=== PATIENT | female | born 2000 | race Caucasian/White ===

== ENCOUNTER 2018-03-28 19:17 | Emergency (ER) | payer OTHER ==
[~2018-03-28] VITALS: Ht 165.1 cm; Wt 91.2 kg
[2018-03-28 19:29] VITALS: Ht 165.1 cm; Wt 91.2 kg
[2018-03-28 20:49] VITALS: BP 128/84
== END 2018-03-28 20:49 | disposition home or self-care (01) ==
LOC: ED 19:17
DX: H66.93 Otitis media, unspecified, bilateral (principal)

== ENCOUNTER 2018-04-13 17:38 | Emergency (ER) | payer OTHER ==
[~2018-04-13] VITALS: Ht 165.1 cm; Wt 91.6 kg
[2018-04-13 17:54] VITALS: Ht 165.1 cm; Wt 91.6 kg
[2018-04-13 20:19] VITALS: BP 142/94
== END 2018-04-13 20:19 | disposition home or self-care (01) ==
LOC: ED 17:38
DX: B34.9 Viral infection, unspecified (principal); E11.9 Type 2 diabetes mellitus without complications; Z91.013 Allergy to seafood